=== PATIENT | female | born 1960 | race Caucasian/White ===

== ENCOUNTER 2017-03-23 16:17 | Emergency (ER) | payer OTHER ==
[~2017-03-23] VITALS: Ht 170.2 cm; Wt 90.7 kg
[2017-03-23] MEDS ORDERED: TECFIDERA240 MG PO (17:05)
[2017-03-23] MEDS ORDERED: PLAVIX75 MG PO (17:06)
[2017-03-23] MEDS ORDERED: SYNTHROID112 MCG PO (17:06)
[2017-03-23] MEDS ORDERED: LASIX20 MG PO (17:07)
[2017-03-23] MEDS ORDERED: CELEBREX200 MG PO (17:07)
[2017-03-23] MEDS ORDERED: PRINIVIL5 MG PO (17:08)
[2017-03-23] MEDS ORDERED: TENORMIN25 MG PO (17:08)
[2017-03-23] MEDS ORDERED: AMANTADINE100 MG PO (17:09)
[2017-03-23] MEDS ORDERED: HYDROCODON-ACE1 EAC6 PO (17:12)
[2017-03-23] MEDS ORDERED: LYRICA50 MG PO (17:13)
[2017-03-23] MEDS ORDERED: LIPITOR20 MG PO (17:14)
[2017-03-23] MEDS ORDERED: VITAMIN C1000 MG PO (17:16)
[2017-03-23] MEDS ORDERED: TOPAMAX25 MG PO (17:16)
[2017-03-23] MEDS ORDERED: VITAMIN D31000 UNI1 PO (17:17)
[2017-03-23] MEDS ORDERED: CALTRATE 600 WI1 TAB PO (17:18)
== END 2017-03-23 17:58 | disposition short-term general hospital (02) ==
LOC: ER 16:17
DX: I47.1 Supraventricular tachycardia (principal); N28.9 Disorder of kidney and ureter, unspecified; I10 Essential (primary) hypertension; G35 Multiple sclerosis; E03.9 Hypothyroidism, unspecified; I25.10 Atherosclerotic heart disease of native coronary artery without angina pectoris; E78.5 Hyperlipidemia, unspecified; F17.200 Nicotine dependence, unspecified, uncomplicated; Z79.899 Other long term (current) drug therapy; Z79.02 Long term (current) use of antithrombotics/antiplatelets; Z88.8 Allergy status to other drugs, medicaments and biological substances
CPT/HCPCS: A9270; J0153